=== PATIENT | female | born 1975 | race Caucasian/White ===

== ENCOUNTER 2020-11-19 14:11 | Emergency (ER) | payer OTHER ==
[~2020-11-19] VITALS: Ht 172.7 cm; Wt 81.7 kg
[~2020-11-19 14:11] MED LIST: CLONAZEPAM 1 MG1 M1 PO; PROZAC20 MG PO
[2020-11-19 16:29] LABS: ABSOLUTE LYMPHOCYTES 0.3 thou/uL (0.8-5.3); ABSOLUTE MONOCYTES 0.1 thou/uL (0.0-1.2); ABSOLUTE NEUTROPHILS 2.4 thou/uL (1.6-8.1); BASOPHILS 0.3 %; HEMATOCRIT 37.3 % (37.0-47.0); MCH 25.4 pg (26.0-34.0); MCHC 32.1 g/dL (28.0-37.0); MCV 79.1 fL (80.0-100.0); MONOCYTES 4.9 %; NUCLEATED RBCS 0 /100WBC; PLATELET COUNT* 132 thou/uL (150-400); POLYS 82.8 %; RBC 4.72 mil/uL (4.20-5.00); RDW-CV 20.8 % (10.5-14.5); WBC 2.9 thou/uL (4.0-11.0)
[2020-11-19 16:57] LABS: CALCIUM 7.9 mg/dL (8.5-10.1); CREATININE 1.1 mg/dL (0.6-1.3); POTASSIUM 4.4 mmol/L (3.5-5.1)
[2020-11-19 17:02] LABS: ALBUMIN 3.1 g/dL (3.4-5.0); TOTAL BILIRUBIN 0.2 mg/dL (<0.1-1.0); TOTAL PROTEIN 6.8 g/dL (6.4-8.2)
[2020-11-19] MEDS ORDERED: PREDNISONE 20 M20 MG PO (17:11)
[2020-11-19] MEDS ORDERED: APAP W/CODEINE1 TA2 PO (17:11)
[2020-11-19] MEDS ORDERED: PROAIR HFA8.5 GM INH (17:11)
[2020-11-19] MEDS ORDERED: TESSALON PERLE100 MG PO (17:11)
[2020-11-19 17:28] LABS: ANISOCYTOSIS 2+; MICROCYTES 1+; OVALOCYTES Occasional; PLATELET ESTIMATE ADEQUATE
[2020-11-19 17:42] VITALS: BP 119/63
== END 2020-11-19 17:44 | disposition home or self-care (01) ==
LOC: M.ERS 14:11
PROVIDERS: Physician Assistant
DX: U07.1 COVID-19 (principal); J40 Bronchitis, not specified as acute or chronic

== ENCOUNTER 2020-11-24 10:43 | Inpatient (IN) | payer OTHER ==
[~2020-11-24] VITALS: Ht 172.7 cm; Wt 77.6 kg
[~2020-11-24 10:43] MED LIST changes: +APAP W/CODEINE1 TA2 PO; +PREDNISONE 20 M20 MG PO; +PROAIR HFA8.5 GM INH; +TESSALON PERLE100 MG PO
[2020-11-24 10:59] VITALS: BP 122/76
[2020-11-24 11:33] LABS: HEMATOCRIT 35.1 % (37.0-47.0); HEMOGLOBIN 11.1 gm/dL (12.0-15.0); MCH 24.5 pg (26.0-34.0); MCHC 31.7 g/dL (28.0-37.0); MCV 77.3 fL (80.0-100.0); MPV 9.7 fl. (7.2-11.1); NUCLEATED RBCS 0 /100WBC; PLATELET COUNT* 324 thou/uL (150-400); RBC 4.54 mil/uL (4.20-5.00); RDW-CV 20.7 % (10.5-14.5); WBC 8.7 thou/uL (4.0-11.0)
[2020-11-24 11:42] LABS: CALCIUM 8.3 mg/dL (8.5-10.1); POTASSIUM 3.3 mmol/L (3.5-5.1)
[2020-11-24 11:46] LABS: ALBUMIN 2.4 g/dL (3.4-5.0); TOTAL BILIRUBIN 0.3 mg/dL (<0.1-1.0); TOTAL PROTEIN 6.8 g/dL (6.4-8.2)
[2020-11-24 11:55] LABS: ABSOLUTE LYMPHOCYTES 0.3 thou/uL (0.8-5.3); ABSOLUTE MONOCYTES 0.3 thou/uL (0.0-1.2); ANISOCYTOSIS 1+; PLATELET ESTIMATE ADEQUATE; POIKILOCYTOSIS 1+
--- NOTE | 2020-11-24 16:25 | EKG ---
[place] [address] ELECTROCARDIOGRAM REPORT Name: TIEN [address] Room: [place] [address] ADM IN [facility].#: [id number] Admission: 11/24/20 Attend Phys: Erica Luong, Discharge: Date of : 77 Date of Service: 11/24/20 1118 Report #: [id number] THIS REPORT FOR: //name// [facility] ED Test Date: 2020-11-24 Test Time: 11:18:57 Pat Name: TIEN LANE Department: Room: [facility] Gender: F [employer]: medic student : 1975 Requested By: Jak Medina Order Number: [id number] MD: Milton Eli Measurements Intervals [place] Rate: 67 P: 17 IN: 116 QRS: 16 QRSD: 94 T: -21 QT: 430 QTc: 454 Interpretive Statements Sinus rhythm Borderline short IN interval Borderline T abnormalities, inferior leads No previous ECG available for comparison Electronically Signed On 11-24-2020 16:25:25 CDT by Milton Eli [email or web address] <ELECTRONICALLY SIGNED> By: Milton Eli MD, FACC 11/24/20 1625 1118 1118 Milton Eli MD, [facility] /EPI
[2020-11-24 18:18] VITALS: BP 136/80
--- NOTE | 2020-11-24 19:06 | NUR ---
ASSUMED CARE AT 1900. REPORT TAKEN FROM KOSTAS KRAUS
[2020-11-24 22:00] VITALS: BP 139/80
[2020-11-25] VITALS (9 sets, daily range): BP systolic 118–155; BP diastolic 68–84
[2020-11-25 03:37] LABS: ALBUMIN 2.2 g/dL (3.4-5.0); CALCIUM 7.8 mg/dL (8.5-10.1); MAGNESIUM 2.2 mg/dL (1.8-2.4); POTASSIUM 3.5 mmol/L (3.5-5.1); TOTAL BILIRUBIN 0.3 mg/dL (<0.1-1.0); TOTAL PROTEIN 6.2 g/dL (6.4-8.2)
[2020-11-25 04:36] LABS: HEMATOCRIT 31.3 % (37.0-47.0); HEMOGLOBIN 10.2 gm/dL (12.0-15.0); MCH 25.4 pg (26.0-34.0); MCHC 32.6 g/dL (28.0-37.0); MCV 77.6 fL (80.0-100.0); MPV 9.2 fl. (7.2-11.1); RBC 4.03 mil/uL (4.20-5.00); RDW-CV 20.3 % (10.5-14.5); WBC 6.1 thou/uL (4.0-11.0)
[2020-11-25 04:45] LABS: INFLUENZA A ANTIGEN Negative (Negative); INFLUENZA B ANTIGEN Negative (Negative)
--- NOTE | 2020-11-25 12:35 | NUR ---
PT ADMITTED TO ROOM 114 VIA CART FROM ED, REPORT RECEIVED FROM OMARI RN. PT AOX4, C/O SHORTNESS OF BREATH WHEN MOVING AROUND, CURRENTLY ON 3L AND SATTING ABOVE 90%. PT UP AD BHAVIN TO COMMODE BUT INSTRUCTED TO CALL OUT IF SHE NEEDS ASSISTANCE. PT ORIENTED TO ROOM AND CALL LIGHT, ADMISSION ASSESSMENT AND HX COMPLETED CHARTED, HOME MEDS UPDATED AND YOUCALL SENT TO DR MARQUEZ TO UPDATE MEDS ON JUN. PT GOAL IS TO KEEP SATS ABOVE 90%. SHE STATES SHE TESTED POSITIVE FOR COVID 2 WEEKS AGO, RAPID WAS NEGATIVE NOW, AND SON ALSO HAD COVID BUT ARE GETTING BETTER.
--- NOTE | 2020-11-25 13:14 | NUR ---
INFECTION CONTROL: PER [facility] PATIENT HAD A POSITIVE COVID ANTIGEN TEST ON 11/12/20 AND A NEGATIVE COVID ANTIGEN TEST ON 10/27/20.
[2020-11-26 00:24] VITALS: BP 153/83
[2020-11-26 04:05] VITALS: BP 138/60
[2020-11-26 04:44] LABS: HEMATOCRIT 33.4 % (37.0-47.0); HEMOGLOBIN 10.5 gm/dL (12.0-15.0); MCH 24.6 pg (26.0-34.0); MCHC 31.5 g/dL (28.0-37.0); MCV 78.1 fL (80.0-100.0); MPV 8.6 fl. (7.2-11.1); RBC 4.27 mil/uL (4.20-5.00); RDW-CV 20.2 % (10.5-14.5); WBC 5.7 thou/uL (4.0-11.0)
[2020-11-26 05:00] LABS: ALBUMIN 2.1 g/dL (3.4-5.0); CALCIUM 8.1 mg/dL (8.5-10.1); CREATININE 0.9 mg/dL (0.6-1.3); MAGNESIUM 2.2 mg/dL (1.8-2.4); POTASSIUM 3.7 mmol/L (3.5-5.1); TOTAL BILIRUBIN 0.3 mg/dL (<0.1-1.0); TOTAL PROTEIN 6.1 g/dL (6.4-8.2)
--- NOTE | 2020-11-26 06:44 | NUR ---
PATIENT HAS SLEPT WELL THROUGHOUT MOST OF THE NIGHT. VSS ON 1L 02 VIA NASAL CANNULA. MEDICATIONS GIVEN ORDERED AND CHARTED. IV IN RIGHT AC-SL. IV ABT GIVEN WITHOUT ANY ADVERSE SIDE EFFECTS NOTED. PATIENT INSTRUCTED TO USE CALL LIGHT WHEN NEEDING ASSISTANCE. HOURLY ROUNDS MADE. WILL CONTINUE WITH PLAN OF CARE AND NURSING TO MONITOR.
[2020-11-26 07:48] VITALS: BP 121/71
[2020-11-26 12:12] VITALS: BP 118/74
--- NOTE | 2020-11-26 13:49 | NUR ---
Pt is A&o. Resides at home with . Independent. No DME. No hx of HH or SNF. Goal is home at dc. Pt on 1L. Covid positive, wean prior to dc. Pt may need ex ox at dc.
--- NOTE | 2020-11-26 13:55 | NUR ---
Nutrition: Pt admitted to COVID unit. On 1L O2. Consult received for poor po intake. Wts in [facility] 180 yday and 171# today - please reweigh for accuracy. It is noted that pt has poor appetite, frequent cough. +BM yday. Albumin 2.1, prealbumin 15.8, BG WNL. Meds reviewed. RN busy with other pt on [facility] when I attempted to call. RD will order Ensure for added nutrition and encouragement of po intake. Consider mild risk at this time.
--- NOTE | 2020-11-26 19:50 | NUR ---
Pt up to chair for most of shift. O2 @ 4-5L; BAILEY. New IV placed to LFA. Encouraged to increase activity as able. Incentive spirometer in room. VSS. Will continue to monitor.
[2020-11-26 21:00] VITALS: BP 110/70
[2020-11-27 00:46] VITALS: BP 126/69
[2020-11-27 04:32] VITALS: BP 145/85
[2020-11-27 05:03] LABS: HEMATOCRIT 33.7 % (37.0-47.0); HEMOGLOBIN 10.5 gm/dL (12.0-15.0); MCH 24.3 pg (26.0-34.0); MCHC 31.1 g/dL (28.0-37.0); MCV 78.2 fL (80.0-100.0); MPV 8.5 fl. (7.2-11.1); RBC 4.3 mil/uL (4.20-5.00); RDW-CV 20.4 % (10.5-14.5); WBC 6.2 thou/uL (4.0-11.0)
[2020-11-27 05:30] LABS: ALBUMIN 2.1 g/dL (3.4-5.0); MAGNESIUM 2.3 mg/dL (1.8-2.4); POTASSIUM 4.4 mmol/L (3.5-5.1); TOTAL BILIRUBIN 0.3 mg/dL (<0.1-1.0); TOTAL PROTEIN 6.1 g/dL (6.4-8.2)
--- NOTE | 2020-11-27 07:08 | NUR ---
PATIENT HAS SLEPT WELL THROUGHOUT MOST OF THE NIGHT. VSS ON 4L 02 VIA NASAL CANNULA. MEDICATIONS GIVEN ORDERED AND CHARTED. IV IN LEFT FOREARM-SL. IV ABT GIVEN WITHOUT ANY ADVERSE SIDE EFFECTS NOTED. PATIENT INSTRUCTED TO USE CALL LIGHT WHEN NEEDING ASSISTANCE. HOURLY ROUNDS MADE. WILL CONTINUE WITH PLAN OF CARE AND NURSING TO MONITOR.
[2020-11-27 08:30] VITALS: BP 114/66
[2020-11-27 12:15] VITALS: BP 110/58
--- NOTE | 2020-11-27 16:00 | NUR ---
Covid positive. On 4L, continue to wean. Positive blood cultures. Anticipate dc in a few days.
[2020-11-27 16:14] VITALS: BP 108/64
--- NOTE | 2020-11-27 19:22 | NUR ---
Pt reports feeling better today. O2 now at 2L per NC. No complaints, but pt did say her son just had a birthday (6 yrs). Very pleasant and hoping to be ready for discharge soon. VSS. Will continue to monitor.
[2020-11-27 19:50] VITALS: BP 138/76
[2020-11-28 00:48] VITALS: BP 121/68
[2020-11-28 04:38] VITALS: BP 134/77
--- NOTE | 2020-11-28 05:45 | NUR ---
PT A&O X 4. ON 2L. MEDS GIVEN ORDERED. NO C/O PAIN. UP INDEPENDENTLY TO BSC. PT SLEPT MOST OF THE NIGHT. CALL LIGHT WITHIN REACH. WILL CONTINUE TO MONITOR.
[2020-11-28 09:33] VITALS: BP 122/68
[2020-11-28 12:50] VITALS: BP 107/60
[2020-11-28 16:25] VITALS: BP 108/61
--- NOTE | 2020-11-28 19:30 | NUR ---
Pt reports feeling better today. IV infiltrated; took some time to get new IV established which delayed infusion of IV abx adn last dose of Remdesivir. O2 at 2L per NC. O2 sats mid to upper 90s. VSS. Will continue to monitor.
[2020-11-28 20:00] VITALS: BP 115/65
[2020-11-29 00:33] VITALS: BP 144/79
[2020-11-29 04:30] VITALS: BP 133/84
[2020-11-29 06:10] LABS: HEMATOCRIT 35.2 % (37.0-47.0); HEMOGLOBIN 11.5 gm/dL (12.0-15.0); MCH 25.4 pg (26.0-34.0); MCHC 32.7 g/dL (28.0-37.0); MCV 77.8 fL (80.0-100.0); MPV 8.5 fl. (7.2-11.1); RBC 4.52 mil/uL (4.20-5.00); RDW-CV 20.3 % (10.5-14.5); WBC 9.7 thou/uL (4.0-11.0)
[2020-11-29 06:11] LABS: CALCIUM 8.5 mg/dL (8.5-10.1); CREATININE 0.9 mg/dL (0.6-1.3); POTASSIUM 4.4 mmol/L (3.5-5.1)
--- NOTE | 2020-11-29 07:44 | NUR ---
ASSUMED CARE OF PT AFTER REPORT AT 1930. PT A&OX4. VSS. PHYSICAL ASSESSMENT COMPLETED AND CHARTED. PT ON O2 AT 2LNC. PT TRACING SR ON TELE. PT UPADLIB TO BSC. PT DENIES ANY PAIN. CALL LIGHT WITHIN REACH.
[2020-11-29 08:00] VITALS: BP 108/66
[2020-11-29] MEDS ORDERED: AZITHROMYCIN500 MG PO (08:52)
[2020-11-29 10:28] VITALS: BP 108/66
[2020-11-29 14:23] VITALS: BP 116/67
--- NOTE | 2020-11-29 16:34 | NUR ---
ASSUMED PT CARE AT 0730, PT AOX4, STATES SHE ONLY GETS SOA WHEN AMBULATING. PT WORKED W/ RT AND DOESN'T REQUIRE O2 WITH REST OR EXERCISE. DC ORDERS RECEIVED. IV AND HALF BACKER REMOVED. PT DC'D BY W/ NURSING STAFF AND ALL PAPERWORK AND PERSONAL BELONGINGS TO 'S VEHICLE AT APPROX 1601
== END 2020-11-29 16:01 | disposition home or self-care (01) | DRG 177 ==
LOC: M.ERS 10:43 → M.TBA-ER 14:18 → M.ORTHSURG 14:18 → M.TBA-ER 20:31 → M.ORTHSURG 11-25 11:44
PROVIDERS: Emergency Medicine Emergency Medical Services; Family Medicine; ADMIT Internal Medicine; ATTEND Internal Medicine
PROC: XW033E5 Introduction of Remdesivir Anti-infective into Peripheral Vein, Percutaneous Approach, New Technology Group 5 (ICD-10-PCS; principal; 2020-11-24)
DX: U07.1 COVID-19 (principal); J96.01 Acute respiratory failure with hypoxia; J12.82 Pneumonia due to coronavirus disease 2019; J15.9 Unspecified bacterial pneumonia; E86.0 Dehydration; F41.9 Anxiety disorder, unspecified; Z79.899 Other long term (current) drug therapy